=== PATIENT | male | born 1990 | race Caucasian/White ===

== ENCOUNTER 2018-11-08 16:48 | Emergency (ER) | payer OTHER ==
[2018-11-08 16:54] VITALS: BP 120/81; PULSE 75; TEMP 98; BMI 26.6
[2018-11-08] MEDS ORDERED: KETOROLAC TROMETHAMINE 30 MG/1 ML VIAL IVPUSH ONE (16:59)
[2018-11-08] MEDS ORDERED: KETOROLAC TROMETHAMINE 30 MG/1 ML VIAL ONE (17:21)
[2018-11-08 17:30] LABS: BASO % 0.2 % (0-2.0); EOS % 0.2 % (0-4.5); HEMATOCRIT 43.5 % (35.4-49); HEMOGLOBIN 14.5 GM/dl (11.7-16.9); MCH 29.3 pg (25.7-33.7); MCHC 33.4 g/dl (32.0-35.9); MEAN CELL VOLUME 87.8 fl (80-96); MEAN PLT VOLUME 9.4 fl (7.5-11.1); MONO % 3.9 % (3.8-10.2); NEUT % 86.7 % (42.8-82.8); PLATELET COUNT 275 K/MM3 (134-434); RBC 4.95 M/mm3 (4.00-5.60); WHITE BLOOD COUNT 7.5 K/mm3 (4.0-10.8)
[2018-11-08 17:46] LABS: ALBUMIN 4.2 g/dl (3.4-5.0); BILIRUBIN,TOTAL 0.7 mg/dl (0.2-1); CALCIUM 8.8 mg/dl (8.5-10); CREATININE 1.1 mg/dl (0.55-1.3); POTASSIUM 4.3 mmol/L (3.5-5.1); TOT PROT 6.9 g/dl (6.4-8.2)
[2018-11-08] MEDS ORDERED: ACETAMINOPHEN INJECTION 100 ML IVPB ONE (17:48)
--- NOTE | 2018-11-08 18:25 | PDOC ---
Documentation entered by Diana Quach SCRIBE, acting as scribe for Jean Marie Mirza MD. Jean Marie Mirza MD: This documentation has been prepared by the Main mello Aiswarya, SCRIBE, under my direction and personally reviewed by me in its entirety. I confirm that the documentation accurately reflects all work, treatment, procedures, and medical decision making performed by me. History of Present Illness - General Chief Complaint: Pain, Acute Stated Complaint: RIGHT FLANK/BACK PAIN Time Seen by Provider: 11/08/18 16:59 History Source: Patient Exam Limitations: No Limitations - History of Present Illness Initial Comments: 11/08/18 18:28 The patient is a 28 year old male, with a significant PMH of kidney stones( last stone was 7 years ago) , who presents to the emergency department with flank pain that began last night. The patient states pain is located to the right flank that radiates to the right side and right groin. The patient states he endorsed associated symptoms of nausea, 2 episodes of vomiting, fatigue, and sweats this morning , no relief with Aleve. The patient denies chest pain, shortness of breath, headache and dizziness.Denies fever, chills, diarrhea and constipation.Denies dysuria, frequency, urgency and hematuria. Allergies: Penicillin Past surgical history: None reported Social history: None reported PCP: None reported Past History - Past Medical History Allergies/Adverse Reactions: Allergies Allergy/AdvReac Type Severity Reaction Status Date / Time Penicillins Allergy Verified 11/08/18 16:50 Home Medications: Ambulatory Orders Naproxen 500 mg PO TID PRN #20 tablet 11/08/18 Tamsulosin HCl [Flomax] 0.4 mg PO DAILY #5 cap.er.24h 11/08/18 COPD: No Kidney Stones: Yes - Psycho Social/Smoking Cessation Hx Smoking History: Former smoker Have you smoked in the past 12 months: No Information on smoking cessation initiated: No Review of Systems - Review of Systems Able to Perform ROS?: Yes Comments:: 11/08/18 18:29 GENERAL/CONSTITUTIONAL: No fever or chills. No weakness. HEAD, EYES, EARS, NOSE AND THROAT: No change in vision. No ear pain or discharge. No sore throat. CARDIOVASCULAR: No chest pain or shortness of breath. RESPIRATORY: No cough, wheezing, or hemoptysis. GASTROINTESTINAL: No nausea, vomiting, diarrhea or constipation. GENITOURINARY: No dysuria, frequency, or change in urination. MUSCULOSKELETAL: No joint or muscle swelling or pain. No neck or back pain. SKIN: No rash NEUROLOGIC: No headache, vertigo, loss of consciousness, or change in strength/ sensation. ENDOCRINE: No increased thirst. No abnormal weight change. HEMATOLOGIC/LYMPHATIC: No anemia, easy bleeding, or history of blood clots. ALLERGIC/IMMUNOLOGIC: No hives or skin allergy. Constitutional: No: Chills, Fever Respiratory: No: Shortness of Breath Cardiac (ROS): No: Chest Pain ABD/GI: Yes: Nausea, Vomiting. No: Constipated, Diarrhea : Yes: See HPI, Flank Pain. No: Dysuria, Hematuria All Other Systems: Reviewed and Negative *Physical Exam - Vital Signs Last Vital Signs Temp Pulse Resp BP Pulse Ox 98 F 75 18 120/81 100 11/08/18 16:48 11/08/18 16:48 11/08/18 16:48 11/08/18 16:48 11/08/18 16:48 - Physical Exam Comments: 11/08/18 18:29 GENERAL: The patient is awake, alert, and fully oriented, in no acute distress. HEAD: Normal with no signs of trauma. LUNGS: Breath sounds equal, clear to auscultation bilaterally. No wheeze/ crackles. HEART: Regular rate and rhythm, normal S1 and S2 without murmur or rub. ABDOMEN: No noticeable right CVA tenderness. Soft/nontender/nondistended. BS wnl. No guarding or rebound. No palpable masses. No hepatosplenomegaly. EXTREMITIES: Normal range of motion, no edema. No clubbing or cyanosis. No cords, erythema, or tenderness. NEUROLOGICAL: Cranial nerves II through XII grossly intact. Normal speech, normal gait. PSYCH: Normal mood, normal affect. SKIN: Warm, Dry, normal turgor, no rashes or lesions noted. ED Treatment Course - LABORATORY CBC & Chemistry Diagram: 11/08/18 17:20 11/08/18 17:20 - ADDITIONAL ORDERS Additional order review: Laboratory Results 11/08/18 17:10 Urine Color Yellow Urine Appearance Slightly Urine pH 6.5 Urine Protein 1+ H Urine Glucose (UA) Negative Urine Ketones Negative Urine Blood 2+ H Urine Nitrite Negative Urine Bilirubin 1+ H Urine Urobilinogen 0.2 Ur Leukocyte Esterase Negative - Medications Given in the ED: ED Medications Discontinued Medications Generic Name Dose Route Start Last Admin Trade Name Babar PRN Reason Stop Dose Admin Ketorolac Tromethamine 30 mg 11/08/18 16:59 11/08/18 17:24 Toradol Injection - IVPUSH 11/08/18 17:00 30 mg ONCE ONE Administration Medical Decision Making - Medical Decision Making 11/08/18 18:16 A portion of this note was documented by scribe services under my direction. I have reviewed the details of the note, within reason, and agree with the documentation with the following case summary and management plan written by me. Healthy 28-year-old male with history of kidney stones times one episode 7 years ago presents now with acute onset of right flank pain initially in the middle of the night and then persistently since this morning, radiating from the right flank to the right groin, associated with nausea/vomiting/cold sweats , but no fevers. No urinary complaints. Took Aleve, presents for evaluation. Prior stone passed spontaneously, no intervention required needed Afebrile, vital signs stable Arrived uncomfortable, now without complaints following Toradol No jaundice or pallor Lungs are clear, heart is regular Abdomen is soft/nondistended, no focal tenderness or guarding, no notable CVA tenderness. 28-year-old male with h/o kidney stones with presentation consistent with recurrent kidney stone, afebrile with pain adequately controlled after Toradol. Labs are within normal limits including BUN/creatinine, urinalysis with blood but no evidence of infection Given the expected progression of symptoms, no evidence of obstruction, and no evidence of infection, with adequate pain control, will spare this young man imaging given the clinical diagnosis of renal colic. Prescribed Flomax, follow- up urology or return to ER as needed. Discharge - Discharge Information Problems reviewed: Yes Clinical Impression/Diagnosis: Renal colic on right side Condition: Improved Disposition: HOME - Additional Discharge Information Prescriptions: Naproxen 500 mg PO TID PRN #20 tablet PRN Reason: Pain Tamsulosin HCl [Flomax] 0.4 mg PO DAILY #5 cap.er.24h - Follow up/Referral Referrals: Rufus James MD [Staff Physician] - - Patient Discharge Instructions Patient Printed Discharge Instructions: DI for Kidney Stones Additional Instructions: Activity as tolerated. Stay hydrated. Your pain presentation is consistent with a kidney stone, there is no evidence of infection or severe blockage based on blood tests and urine tests. Tylenol 1000 mg every 8 hours and/or naproxen as prescribed as needed for pain. Take Flomax as prescribed to help with passage of the stone. Continue any medications as previously prescribed by your physician. You should follow up with a Urologist (consider calling Dr. James) as soon as possible regarding today's emergency department visit. If mild symptoms persist, you can follow-up in a urologist's office. Return to the emergency department for any new or concerning symptoms, particularly severe or persistent pain, fevers, difficulty urinating, decreased urine production. - Post Discharge Activity Work/Back to School Note: Back to Work
== END 2018-11-08 18:38 | disposition home or self-care (01) ==
LOC: FER 16:48
PROC: 3E0333Z Introduction of Anti-inflammatory into Peripheral Vein, Percutaneous Approach (ICD-10-PCS; principal; 2018-11-08)
DX: N20.0 Calculus of kidney (principal); Z87.891 Personal history of nicotine dependence
CPT/HCPCS: 36415; 80053; 81003; 81015; 85025; 99285-25

== ENCOUNTER 2018-11-13 08:57 | Emergency (ER) | payer OTHER ==
[2018-11-13] MEDS ORDERED: KETOROLAC TROMETHAMINE 15 MG/ML VIAL IVPUSH ONE (09:01)
[2018-11-13] MEDS ORDERED: SODIUM CHLORIDE 0.9% 500 ML INFUS.BAG IV ONE (09:01)
[2018-11-13 09:07] VITALS: BP 126/79; PULSE 91; TEMP 97.6; BMI 28.3
[2018-11-13] MEDS ORDERED: KETOROLAC TROMETHAMINE 30 MG/1 ML VIAL ONE (09:19)
--- NOTE | 2018-11-13 09:23 | PDOC ---
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 On 11/08, pt was seen here for R sided flank pain, had blood in urine, but normal labs with resolution of pain, and was discharged. He reports pain returned intermittently btwn discharge from ED and the next day, but then he heard a stone possibly hitting the porcelin of the toilet that day and thought it may have passed. He was pain free until last night when he felt nausea and chills and was awoken by sudden onset R sided flank pain and urinary urgency. He reports pain is intermittent. The pain radiates to his groin when he voids. He took 1000mg tylenol for pain this morning. Has been taking flomax but pharmacy was unable to fill naproxen and thus he has been taking just tylenol. Denies fevers, headache, cp, sob, vomiting, diarrhea, LE edema, focal weakness/numbness. 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, etoh, tobacco use Past History - Past Medical History Allergies/Adverse Reactions: Allergies Allergy/AdvReac Type Severity Reaction Status Date / Time Penicillins Allergy Verified 11/13/18 08:58 Home Medications: Ambulatory Orders Naproxen 500 mg PO TID PRN #20 tablet 11/08/18 Tamsulosin HCl [Flomax] 0.4 mg PO DAILY #5 cap.er.24h 11/08/18 Acetaminophen [Tylenol -] 1,000 mg PO PRN PRN 11/13/18 COPD: No Kidney Stones: Yes - Psycho Social/Smoking Cessation Hx Smoking History: Never smoked Have you smoked in the past 12 months: No Information on smoking cessation initiated: No Hx Alcohol Use: No Drug/Substance Use Hx: Yes (3 years sober) Review of Systems - Review of Systems Comments:: 11/13/18 09:26 GENERAL/CONSTITUTIONAL: No fever, + chills. No weakness. HEAD, EYES, EARS, NOSE AND THROAT: No change in vision. No ear pain or discharge. No sore throat. GASTROINTESTINAL: +nausea, no vomiting, diarrhea or constipation.+R sided flank pain GENITOURINARY: No dysuria, frequency, +urgency CARDIOVASCULAR: No chest pain or shortness of breath. RESPIRATORY: No cough, wheezing, or hemoptysis. MUSCULOSKELETAL: No joint or muscle swelling or pain. No neck or back pain. SKIN: No rash NEUROLOGIC: No headache, vertigo, loss of consciousness, or change in strength/ sensation. ENDOCRINE: No increased thirst. No abnormal weight change. HEMATOLOGIC/LYMPHATIC: No anemia, easy bleeding, or history of blood clots. ALLERGIC/IMMUNOLOGIC: No hives or skin allergy. *Physical Exam - Vital Signs Last Vital Signs Temp Pulse Resp BP Pulse Ox 97.6 F 91 H 20 126/79 100 11/13/18 08:57 11/13/18 08:57 11/13/18 08:57 11/13/18 08:57 11/13/18 08:57 - Physical Exam Comments: 11/13/18 09:28 GENERAL: Awake, alert, and fully oriented, in no acute distress HEAD: No signs of trauma EYES: PERRLA, EOMI, sclera anicteric, conjunctiva clear ENT: Auricles normal inspection, hearing grossly normal, nares patent, oropharynx clear without exudates. Moist mucosa NECK: Normal ROM, supple, no lymphadenopathy, JVD, or masses LUNGS: Breath sounds equal, clear to auscultation bilaterally. No wheezes, and no crackles HEART: Regular rate and rhythm, normal S1 and S2, no murmurs, rubs or gallops ABDOMEN: Soft, nontender, normoactive bowel sounds. No guarding, no rebound. No masses EXTREMITIES: Normal range of motion, no edema. No clubbing or cyanosis. No cords, erythema, or tenderness NEUROLOGICAL: Normal speech, cranial nerves intact, equal strength and sensation b/l SKIN: Warm, Dry, normal turgor, no rashes or lesions noted. ED Treatment Course - LABORATORY CBC & Chemistry Diagram: 11/13/18 09:40 11/13/18 09:40 - RADIOLOGY Radiology Studies Ordered: Category Date Time Status ABDOMEN & PELVIS CT W/O CONTR [CT] Stat CT Scan 11/13/18 09:11 Ordered Medical Decision Making - Medical Decision Making 11/13/18 09:29 28yo M hx renal colic, presumed stone 11/08, presents to the ED with recurrent R flank pain Vitals wnl Pt well appearing DDx includes renal colic vs UTI vs MSK pain Plan for labs, symptom control, UA. Will obtain spiral CT today given recurrence of sxs. 11/13/18 10:33 UA with 3+ blood, 80-100 RBC, but no sign of infection No leukocytosis. Creatinine wnl CTAP with obstruction 4x3mm stone at R UVJ Pain well controlled with toradol - no pain at this time Case discussed with Dr. James, recommends outpt f/u if pain well controlled Wants to see pt in his office Thursday after 1pm Plan discussed with pt who is in agreement He is well appearing and clinically stable for DC home I discussed the physical exam findings, ancillary test results and final diagnoses with the patient. I answered all of the patient's questions. The patient was satisfied with the care received and felt comfortable with the discharge plan and treatment plan. The patient will call their primary care physician within 24 hours to arrange follow-up and will return to the Emergency Department with any new, persistent or worsening symptoms. Discharge - Discharge Information Problems reviewed: Yes Clinical Impression/Diagnosis: Flank pain with history of urolithiasis, Urinary tract obstruction due to kidney stone, Urgency of urination Condition: Improved Disposition: HOME - Admission No - Follow up/Referral Referrals: Rufus James MD [Staff Physician] - - Patient Discharge Instructions Patient Printed Discharge Instructions: Kidney Stones -- Adult Additional Instructions: As discussed, follow up with Dr. Jones on Thursday11/15/18 after 1pm On Thursday morning, call the office to schedule a time after 1pm to go in Continue to take the flomax daily. For pain, take motrin 600mg every 6 hours alternating with tylenol. If you are taking motrin, do not take aleve, naproxen , ibuprofen, advil or any other NSAID medication as too many NSAIDs can cause ulcers and/or kidney failure. Drink plenty of fluids Return to the emergency department if you have any new, worsening, or concerning symptoms. We hope you feel better soon! - Post Discharge Activity Work/Back to School Note: Back to Work
[2018-11-13 09:50] LABS: BASO % 0.1 % (0-2.0); EOS % 0.8 % (0-4.5); HEMATOCRIT 42.6 % (35.4-49); HEMOGLOBIN 14.4 GM/dl (11.7-16.9); LYMPH % 17.6 % (8-40); MCH 29.3 pg (25.7-33.7); MCHC 33.8 g/dl (32.0-35.9); MEAN CELL VOLUME 86.5 fl (80-96); MEAN PLT VOLUME 9.1 fl (7.5-11.1); MONO % 8.5 % (3.8-10.2); PLATELET COUNT 243 K/MM3 (134-434); RBC 4.93 M/mm3 (4.00-5.60); RDW 12.6 % (11.9-15.9); WHITE BLOOD COUNT 6.3 K/mm3 (4.0-10.8)
[2018-11-13 09:55] LABS: EPITHELIAL CELLS FEW /hpf
[2018-11-13 10:05] LABS: ALBUMIN 4.1 g/dl (3.4-5.0); BILIRUBIN,TOTAL 0.8 mg/dl (0.2-1); CALCIUM 8.8 mg/dl (8.5-10); CREATININE 0.9 mg/dl (0.55-1.3); POTASSIUM 4.1 mmol/L (3.5-5.1); TOT PROT 6.6 g/dl (6.4-8.2)
--- NOTE | 2018-11-13 11:26 | PDOC ---
Patient Follow-up (Call Back) - Post ED Follow - Up Condition at time of discharge: Improved Disposition at time of original discharge: HOME Reason for Call Back: Complaint/Condition F/U (Pt states flomax not at pt pharmacy. Per records, pt with kidney stones. He states he finished the flomax that was previously prescribed. Sent over 5 tabs. Motrin rx also sent. L/M on pt phone to not take the naproxen as previously prescribed if taking Motrin.)
== END 2018-11-13 10:58 | disposition home or self-care (01) ==
LOC: FER 08:57
PROC: 3E0333Z Introduction of Anti-inflammatory into Peripheral Vein, Percutaneous Approach (ICD-10-PCS; principal; 2018-11-13)
PROC: 3E0337Z Introduction of Electrolytic and Water Balance Substance into Peripheral Vein, Percutaneous Approach (ICD-10-PCS; 2018-11-13)
DX: N20.1 Calculus of ureter (principal); Z87.442 Personal history of urinary calculi; R10.31 Right lower quadrant pain; R39.15 Urgency of urination; Z88.0 Allergy status to penicillin; F19.11 Other psychoactive substance abuse, in remission
CPT/HCPCS: 36415; 74176-TC; 80053; 81003; 81015; 85025; 87086; 99282-25